=== PATIENT | male | born 1985 | race Hispanic/Latino ===

== ENCOUNTER 2023-04-23 00:04 | Emergency (ER) | payer BC ==
[~2023-04-23] VITALS: Ht 180.3 cm; Wt 108.9 kg
[2023-04-23] MEDS ORDERED: GABA300C PO (00:40)
[2023-04-23] MEDS ORDERED: IBUP-1493 PO (00:40)
[2023-04-23] MEDS ORDERED: PRED20TA3 PO (00:40)
[2023-04-23] MEDS ORDERED: CYCL-309 PO (00:40)
[2023-04-23] MEDS ORDERED: SOLU-MEDROL 125MG VIAL IVP ONE (01:00)
[2023-04-23] MEDS ORDERED: SOLU-MEDROL 125MG VIAL IM ONE (01:00)
[2023-04-23] MEDS ORDERED: KETOROLAC 60 MG VIAL (30MG/ML) IM ONE (01:00)
[2023-04-23] MEDS ORDERED: CYCLOBENZAPRINE HCL 10 MG TABLET PO ONE (01:00)
[2023-04-23] MEDS ORDERED: GABAPENTIN 100 MG CAPSULE PO SCH (01:00)
[2023-04-23 01:39] VITALS: BP 144/71; PULSE 70; RESP 18; O2SAT 99
== END 2023-04-23 01:45 | disposition home or self-care (01) ==
LOC: EDH 00:04
DX: M54.16 Radiculopathy, lumbar region (principal); M54.50 Low back pain, unspecified
CPT/HCPCS: 99284; 96372 ×2; J2930; J1885